=== PATIENT | male | born 1935 | race Caucasian/White ===

== ENCOUNTER 2017-09-03 18:01 | Inpatient (IN) | payer MEDICARE, BC ==
[~2017-09-03] VITALS: Ht 175.3 cm; Wt 97.0 kg
[~2017-09-03 18:01] MED LIST: ASPIRIN 32325 MG/TA1 PO; BENADRYL25 M2 PO; COREG 3.123.125 MG/T PO; FERROUS SU325 MG/TAB PO; FOLIC ACID0.4 MG PO; GLUCOSAMINE & C1 CAP PO; LIPITOR 40MG TA40 MG PO; NORCO 325 MG-7.1 TAB PO; PLAVIX 75MG TAB75 MG PO; PRIL40 PO; SYNTHROID0.1 MG/TAB PO; VITAMIN C500 MG PO; ZINC50 M1 PO
[2017-09-03 18:56] LABS: HEMOGLOBIN 10.6 g/dl (13.5-18.0); MEAN CELL VOLUME 108 fl (80.0-100.0); MEAN CORPUSCULAR HEMOGLOBIN 37 pg (27.0-31.0); MEAN CORPUSCULAR HGB CONC 34 g/dl (33.0-37.0); MEAN PLATELET VOLUME 10.6 fl (7.4-10.4); PLATELET COUNT 128 K/mm3 (130-400); RED BLOOD COUNT 2.86 M/mm3 (4.20-5.60); REDCELL DISTRIBUTION WIDTH-CV 13.3 % (11.5-14.5)
[2017-09-03 19:03] LABS: HEMATOCRIT 30.9 % (42.0-52.0)
[2017-09-03 19:04] LABS: COLLECTION METHOD CLEAN CATCH
[2017-09-03 19:10] LABS: PH 6 (5-8); SQUAMOUS EPITHELIAL None Seen /hpf; URINE APPEARANCE Clear; URINE BACTERIA None Seen /hpf; URINE BILIRUBIN Negative (NEGATIVE); URINE BLOOD Negative (NEGATIVE); URINE COLOR Yellow; URINE GLUCOSE Negative (NEGATIVE); URINE KETONE Negative (NEGATIVE); URINE LEUKOCYTE ESTERASE Negative (NEGATIVE); URINE NITRATE Negative (NEGATIVE); URINE PROTEIN(semi-quant) Negative (NEGATIVE)
[2017-09-03 19:14] LABS: ALBUMIN 3.8 gm/dL (3.5-5.0); BILIRUBIN,TOTAL 0.5 mg/dL (0.0-1.0); CALCIUM 8.6 mg/dL (8.4-10.2); CREATININE, serum 1.19 mg/dL (0.66-1.25); TOTAL PROTEIN 8.1 gm/dL (6.4-8.2)
[2017-09-03 19:15] LABS: ANISOCYTOSIS 1+; BAND 6 % (0-10); LYMPHOCYTE 75 % (20.0-51.0); MICROCYTOSIS 1+; NEUTROPHILS 19 % (42.0-75.2); PLATELET ESTIMATE NORMAL (NORMAL)
[2017-09-03] MEDS ORDERED: ZOVIRAX800 MG PO (19:28)
[2017-09-03] MEDS ORDERED: DAILY MULTIPLE1 T18 PO (19:28)
[2017-09-03] MEDS ORDERED: COLACE 100100 MG/CAP PO (19:29)
[2017-09-03] MEDS ORDERED: LEVAQUIN 5500 MG/TA1 PO (19:33)
[2017-09-03] MEDS ORDERED: NITROSTAT0.4 MG/TAB SL (19:34)
[2017-09-03 20:38] VITALS: BP 179/67; PULSE 81; TEMP 102.7
[2017-09-03 21:14] LABS: INR 1.3 (0.8-3.0); PROTHROMBIN TIME 14.2 SECONDS (9.7-12.8)
[2017-09-03 23:35] VITALS: BP 124/58; PULSE 72; TEMP 98.3
[2017-09-04 04:10] VITALS: BP 156/68; PULSE 74; TEMP 100.5
[2017-09-04 07:17] VITALS: BP 153/66; PULSE 79; TEMP 98.2
[2017-09-04 10:17] LABS: MEAN CELL VOLUME 109 fl (80.0-100.0); MEAN CORPUSCULAR HGB CONC 34 g/dl (33.0-37.0); MEAN PLATELET VOLUME 9.5 fl (7.4-10.4); PLATELET COUNT 96 K/mm3 (130-400); RED BLOOD COUNT 2.68 M/mm3 (4.20-5.60); REDCELL DISTRIBUTION WIDTH-CV 13.5 % (11.5-14.5)
[2017-09-04 10:32] LABS: ALBUMIN 3.4 gm/dL (3.5-5.0); BILIRUBIN,TOTAL 0.6 mg/dL (0.0-1.0); CALCIUM 8.1 mg/dL (8.4-10.2); CREATININE, serum 1.06 mg/dL (0.66-1.25); POTASSIUM 3.6 mmol/L (3.4-5.0); TOTAL PROTEIN 7.3 gm/dL (6.4-8.2)
[2017-09-04 10:45] LABS: HEMATOCRIT 29.2 % (42.0-52.0); HEMOGLOBIN 9.8 g/dl (13.5-18.0); MEAN CORPUSCULAR HEMOGLOBIN 37 pg (27.0-31.0)
[2017-09-04 11:31] VITALS: BP 113/52; PULSE 66; TEMP 98
[2017-09-04 13:42] LABS: BAND 12 % (0-10); LYMPHOCYTE 56 % (20.0-51.0); NEUTROPHILS 26 % (42.0-75.2); PLATELET ESTIMATE DECREASED (NORMAL)
[2017-09-04 13:43] LABS: OVALOCYTES 2+
[2017-09-04 16:37] VITALS: BP 164/66; PULSE 74; TEMP 100.2
[2017-09-04 16:54] LABS: PROCALCITONIN 0.08 ng/mL (0.00-0.09)
[2017-09-04] MEDS ORDERED: PHENERGAN W/CO120 M1 PO (18:07)
[2017-09-04 20:00] VITALS: BP 120/58; PULSE 71; TEMP 98.9
[2017-09-05] VITALS (7 sets, daily range): BP systolic 101–157; BP diastolic 49–70; PULSE 65–78; TEMP 97.8–101.4
[2017-09-05 09:00] LABS: MEAN CELL VOLUME 109 fl (80.0-100.0); MEAN CORPUSCULAR HGB CONC 33 g/dl (33.0-37.0); MEAN PLATELET VOLUME 10.5 fl (7.4-10.4); PLATELET COUNT 96 K/mm3 (130-400); RED BLOOD COUNT 2.72 M/mm3 (4.20-5.60); REDCELL DISTRIBUTION WIDTH-CV 13.6 % (11.5-14.5)
[2017-09-05 09:09] LABS: ALBUMIN 3.3 gm/dL (3.5-5.0); BILIRUBIN,TOTAL 0.6 mg/dL (0.0-1.0); CALCIUM 8.2 mg/dL (8.4-10.2); CREATININE, serum 0.94 mg/dL (0.66-1.25); POTASSIUM 3.4 mmol/L (3.4-5.0); TOTAL PROTEIN 7.4 gm/dL (6.4-8.2)
[2017-09-05 09:18] LABS: HEMATOCRIT 29.6 % (42.0-52.0); HEMOGLOBIN 9.9 g/dl (13.5-18.0); MEAN CORPUSCULAR HEMOGLOBIN 36 pg (27.0-31.0)
[2017-09-05 10:44] LABS: BAND 2 % (0-10); LYMPHOCYTE 86 % (20.0-51.0); NEUTROPHILS 10 % (42.0-75.2); PLATELET ESTIMATE DECREASED (NORMAL)
[2017-09-05 13:21] LABS: FOLATE (FOLIC ACID) 15.9 ng/mL (7.0-31.4)
[2017-09-06 00:40] VITALS: BP 135/79; PULSE 73; TEMP 99.5
[2017-09-06 04:02] VITALS: BP 135/53; PULSE 79; TEMP 99.7
[2017-09-06 06:45] LABS: MEAN CELL VOLUME 107 fl (80.0-100.0); MEAN CORPUSCULAR HGB CONC 35 g/dl (33.0-37.0); MEAN PLATELET VOLUME 10.6 fl (7.4-10.4); PLATELET COUNT 99 K/mm3 (130-400); REDCELL DISTRIBUTION WIDTH-CV 13.4 % (11.5-14.5)
[2017-09-06 06:53] LABS: HEMATOCRIT 26.7 % (42.0-52.0); HEMOGLOBIN 9.2 g/dl (13.5-18.0); MEAN CORPUSCULAR HEMOGLOBIN 37 pg (27.0-31.0)
[2017-09-06 06:56] LABS: CALCIUM 7.7 mg/dL (8.4-10.2); CREATININE, serum 0.9 mg/dL (0.66-1.25); POTASSIUM 3.3 mmol/L (3.4-5.0)
[2017-09-06 07:18] LABS: BAND 4 % (0-10); EOSINOPHIL 4 % (0-4); LYMPHOCYTE 70 % (20.0-51.0); METAMYELOCYTE 4 % (0-0); MYELOCYTE 2 % (0-0); NEUTROPHILS 16 % (42.0-75.2)
[2017-09-06 07:19] LABS: PLATELET ESTIMATE DECREASED (NORMAL)
[2017-09-06 07:23] LABS: OVALOCYTES 1+
[2017-09-06 07:24] LABS: POLYCHROMASIA 1+
[2017-09-06 07:59] VITALS: BP 141/64; PULSE 71; TEMP 99.2
[2017-09-06 11:10] VITALS: BP 107/51; PULSE 66; TEMP 98.1
[2017-09-06 15:31] VITALS: BP 137/63; PULSE 61; TEMP 98.4
[2017-09-06 19:25] VITALS: BP 150/58; PULSE 70; TEMP 98.3
[2017-09-07 00:26] VITALS: BP 154/63; PULSE 67; TEMP 100.6
[2017-09-07 04:07] VITALS: BP 122/61; PULSE 67; TEMP 98.6
[2017-09-07 07:02] LABS: MEAN CELL VOLUME 108 fl (80.0-100.0); MEAN CORPUSCULAR HGB CONC 34 g/dl (33.0-37.0); MEAN PLATELET VOLUME 11.8 fl (7.4-10.4); PLATELET COUNT 80 K/mm3 (130-400); RED BLOOD COUNT 2.65 M/mm3 (4.20-5.60); REDCELL DISTRIBUTION WIDTH-CV 13.5 % (11.5-14.5)
[2017-09-07 07:05] LABS: CALCIUM 7.8 mg/dL (8.4-10.2); CREATININE, serum 0.88 mg/dL (0.66-1.25); MAGNESIUM 1.9 mg/dL (1.6-2.3); POTASSIUM 3.3 mmol/L (3.4-5.0)
[2017-09-07 07:08] LABS: HEMATOCRIT 28.7 % (42.0-52.0); HEMOGLOBIN 9.8 g/dl (13.5-18.0); MEAN CORPUSCULAR HEMOGLOBIN 37 pg (27.0-31.0)
[2017-09-07 07:27] VITALS: BP 151/64; PULSE 69; TEMP 99.8
[2017-09-07 10:04] LABS: BAND 6 % (0-10); EOSINOPHIL 6 % (0-4); LYMPHOCYTE 84 % (20.0-51.0); PLATELET ESTIMATE DECREASED (NORMAL)
[2017-09-07 10:56] VITALS: BP 142/63; PULSE 75; TEMP 97.9
[2017-09-07 12:39] LABS: C-REACTIVE PROTEIN 4.1 mg/dL (0.0-0.9)
[2017-09-07 16:58] VITALS: BP 152/75; PULSE 66; TEMP 99.1
[2017-09-07 19:43] VITALS: BP 155/61; PULSE 64; TEMP 99.1
[2017-09-07 23:55] LABS: RHEUMATOID FACTOR-SCREEN <15 IU/mL (0-29)
[2017-09-08 00:31] VITALS: BP 155/56; PULSE 71; TEMP 99.5
[2017-09-08 04:27] VITALS: BP 117/88; PULSE 96; TEMP 98.7
[2017-09-08 06:34] LABS: MEAN CELL VOLUME 107 fl (80.0-100.0); MEAN CORPUSCULAR HGB CONC 35 g/dl (33.0-37.0); MEAN PLATELET VOLUME 10.3 fl (7.4-10.4); PLATELET COUNT 89 K/mm3 (130-400); RED BLOOD COUNT 2.45 M/mm3 (4.20-5.60); REDCELL DISTRIBUTION WIDTH-CV 13.2 % (11.5-14.5)
[2017-09-08 06:36] LABS: HEMATOCRIT 26.1 % (42.0-52.0); MEAN CORPUSCULAR HEMOGLOBIN 37 pg (27.0-31.0)
[2017-09-08 06:49] LABS: CALCIUM 7.6 mg/dL (8.4-10.2); CREATININE, serum 0.88 mg/dL (0.66-1.25); POTASSIUM 3.3 mmol/L (3.4-5.0)
[2017-09-08 07:45] VITALS: BP 122/67; PULSE 67; TEMP 98.6
[2017-09-08 09:05] LABS: BAND 8 % (0-10); DOHLE BODIES PRESENT; LYMPHOCYTE 64 % (20.0-51.0); NEUTROPHILS 22 % (42.0-75.2); PLATELET ESTIMATE DECREASED (NORMAL); TOXIC GRANULATION PRESENT
[2017-09-08 11:36] VITALS: BP 134/59; PULSE 72; TEMP 98.8
[2017-09-08] MEDS ORDERED: BACTRIM DS 8001 TAB PO (13:01)
[2017-09-09 13:18] LABS: ANGIOTENSIN CONVERTING ENZYME 21 U/L (8 - 53)
[2017-09-09 14:56] LABS: STREP PNEUMO SERO1 XXX; STREP PNEUMO SERO4 XXX
== END 2017-09-08 16:19 | disposition home or self-care (01) | DRG 808 ==
LOC: COL.ER 18:01 → MEDICAL 19:11
PROVIDERS: Family Medicine; Internal Medicine; Nurse Practitioner Family; Physician Assistant
DX: D70.9 Neutropenia, unspecified (principal); J18.9 Pneumonia, unspecified organism; R50.81 Fever presenting with conditions classified elsewhere; D46.9 Myelodysplastic syndrome, unspecified; E03.9 Hypothyroidism, unspecified; I10 Essential (primary) hypertension; E78.5 Hyperlipidemia, unspecified; E87.6 Hypokalemia; I25.10 Atherosclerotic heart disease of native coronary artery without angina pectoris; Z95.5 Presence of coronary angioplasty implant and graft
CPT/HCPCS: 99223-AI; 99232-AI; 99239; A9284; J0456; J0692; J3370; J7030; J7040; J7050; J7120; Q9967

== ENCOUNTER 2017-09-28 09:34 | Day surgery (SDC) | payer MEDICARE, BC ==
[~2017-09-28] VITALS: Ht 177.8 cm; Wt 88.7 kg
[~2017-09-28 09:34] MED LIST changes: +BACTRIM DS 8001 TAB PO; +COLACE 100100 MG/CAP PO; +DAILY MULTIPLE1 T18 PO; +LEVAQUIN 5500 MG/TA1 PO; +NITROSTAT0.4 MG/TAB SL; +PHENERGAN W/CO120 M1 PO; +ZOVIRAX800 MG PO
[2017-09-28 10:04] VITALS: BP 126/72; PULSE 69; TEMP 97.9
[2017-09-28 11:00] VITALS: BP 97/52; PULSE 62; TEMP 97.7
[2017-09-28] MEDS ORDERED: NORCO 325 MG-51 TAB PO (11:01)
[2017-09-28 11:15] VITALS: BP 114/52; PULSE 56
[2017-09-28 11:30] VITALS: BP 123/52; PULSE 54
[2017-09-28 11:45] VITALS: BP 122/52; PULSE 54
== END 2017-09-28 12:08 | disposition home or self-care (01) ==
LOC: SDCO 09:34
DX: D46.9 Myelodysplastic syndrome, unspecified (principal); Z79.82 Long term (current) use of aspirin; Z79.899 Other long term (current) drug therapy; I25.10 Atherosclerotic heart disease of native coronary artery without angina pectoris; E03.9 Hypothyroidism, unspecified; I10 Essential (primary) hypertension; E78.5 Hyperlipidemia, unspecified
CPT/HCPCS: C1788; J0690; J1100; J2250; J2405; J2704; J3010; J7120

== ENCOUNTER → 2018-10-25 | Outpatient (CLI) | payer MEDICARE, BC ==
[~2018-10-25] MED LIST changes: +NORCO 325 MG-51 TAB PO
== END ==
LOC: COL.VAS 13:35
DX: M79.89 Other specified soft tissue disorders (principal)